=== PATIENT | female | born 1945 | race Caucasian/White ===

== ENCOUNTER 2024-01-21 20:56 | Inpatient (IN) | payer OTHER, SELFPAY ==
[2024-01-21 18:00] VITALS: BMI 26.0
[2024-01-21 18:09] VITALS: BP 133/78
--- NOTE | 2024-01-21 18:45 | ED.SKININJ ---
HPI-Injury
General
Chief Complaint: Skin Problem
Source: patient
Exam Limitations: none
Time Seen by Provider: 01/21/24 18:33
Nursing documentation reviewed up to this point in time: agreed with
Travel History
Have you had any contact with someone who has COVID-19?: No
Do you have any symptoms of coronavirus? Fever > 100 degrees, chills, cough, shortness of breath, sore throat, loss of taste or smell, muscle aches, or headache?: No
History of Present Illness-Injury
Is this injury a work related problem?: No
Is pt an associate of [facility]?: No
Initial Injury comments:
Sustained deep scratch to left choudhary 1 week ago by her dog. States performed her own wound care at home - soap, water, antibiotic ointment. By friday would was looking infected. SHe had augmentin at home so she started taking med bid. Friday
wound looked worse. SHe was seen at . Labs on Friday 'normal'. She was told to continue augmentin and doxycycline 100mg bid was added. She states wound continues to worsen. Denies fever/chills. Reports pain redness swelling to leg Brought
self to ED for eval
Past History
Past History
ED Past Medical History: Cancer (melanom, breast), Psychiatric (ADHD) and Other (OA)
ED Past Surgical History: Orthopedic
Social History
Tobacco: Former smoker
Alcohol: None
Review of Systems
Review of Systems
Allergies reviewed?: Yes
All Other Systems: ROS reviewed and negative except as documented in HPI and ROS
Constitutional: Reports no symptoms
Musculoskeletal: Reports no symptoms
Skin: Reports other (8cm vertical deep abrasion to left choudhary. Yellow discharge. Significant surrounding erythema)
Neurological: Reports no symptoms
Psychiatric: Reports no symptoms
Phy Exam
General Physical Exam
General Presentation: well appearing and no apparent distress
General age: appears stated age
General Skin: warm and dry
General Habitus: normal
General Mental: alert
Musculoskeletal Exam
Musculoskeletal Exam: neuro vasc intact
Skin Exam
Skin Exam: other (8cm deep abrasion to left choudhary. Surrounding erythema pain and swelling consistent with worsening cellulitis)
Psychiatric Exam
Psychiatric Exam: normal mood/affect
Course
Orders/Labs/Results
Orders:
Orders
01/21/24 Dinner
Regular
At Your Request: Limited Participation
Does patient need a safe tray?: No
01/21/24 18:43
Periph Venous Lwr Ext Left US [US Periph Venous LOWER Ext LT] Urgent
Comment:
Reason For Exam: swelling
01/21/24 19:18
Complete Blood Count/With Diff Urgent
Comprehensive Metabolic Panel Urgent
Lactic Acid Urgent
Blood Culture Urgent
KIM Source: Blood/Venous
Specimen Description:
Wound Culture [Wound/Abscess/Other Culture] Urgent
KIM Source: Leg
Specimen Description: Left
Date Specimen was Collected: 01/21/24
Time Specimen was Collected: 19:13
01/21/24 19:32
Vancomycin 1 Gram/200 ml [Vancocin] 1 gram in 200 ml IV NOW
01/21/24 20:41
Admit/Transfer Patient As Directed
Co-Sign Provider:
Level of Care: Inpatient admission
Assign to:: Medical/Surgical
Physician / Group: marva
Diagnosis: dog scratch cellulitis
Reason for Hospitalization: dog scratch cellulitis
Expected length of stay greater than two midnights?: Yes
ELOS- Estimated Length of Stay in days: 2
I certify the patient meets the requirements for IP care: Yes
01/21/24 20:42
Code Status As Directed
Resuscitation Status: Full Code
01/21/24 21:19
Activity As Directed
Activity Level: As Tolerated
Vital Signs As Directed
Frequency: Per unit guidelines
DX Deep Vein Thrombosis Video Routine
01/21/24 22:00
Ampicillin/Sulbactam 3 G [Unasyn] 3 gm 0.9% Sodium Chloride 100 ml [Nss] 100 ml IV Q6H
Escitalopram Oxalate [Lexapro] 15 mg PO HS
Xdnxtjfqm-Ogd-Xhwu [Femara] 2.5 mg PO HS
01/22/24 08:00
Amphet Asp/Amphet/D-Amphet [Adderall] 10 mg PO DAILY
Heparin 5,000 units SC Q12
Abnormal Lab Results
01/21/24
19:18
Absolute Monos (auto) 0.8 H 10^3/uL
(0.1-0.6)
BUN 19 H mg/dl
(7-17)
Glucose 100 H mg/dl
(70-99)
01/21/24 19:18
01/21/24 19:18
Vital Signs
Initial and Last Documented VS:
Initial Vital Signs
Temp Pulse Resp BP Pulse Ox
98.2 F 84 20 133/78 94
01/21/24 18:09 01/21/24 18:09 01/21/24 18:09 01/21/24 18:09 01/21/24 18:09
Last Documented Vital Signs
Temp Pulse Resp BP Pulse Ox
97.7 F 77 18 165/88 96
01/21/24 21:31 01/21/24 21:31 01/21/24 21:31 01/21/24 21:31 01/21/24 21:31
*Radiology
Radiology exam reviewed: radiology read reviewed
*Pulse Oximetry
Patient hypoxic: no
*Critical Care Note
Total Time (30-74mins, 75-104mins- exclusive of procedures): Not Applicable
ED Attending Note
-
Portions of this chart may have been created with voice recognition software.� Occasional wrong word or��sound alike� substitutions may have occurred due to the inherent limitations of voice recognition software.
Discharge Plan
Departure
Patient Disposition: Admit
Date of Disposition: 01/21/24
Time of Disposition: 19:34
Presentation/result/management discussed w/ accepting MD/DO: Hospitalist
Condition: Fair
Covid-19: Not Applicable
Discharge Problem:
Cellulitis of leg
Interventions
Interventions:
*Risk Screen - Suicide Last Done: 01/21/24 18:09
*General Assessment Last Done: 01/21/24 18:09
*Neglect/Abuse Screening Last Done: 01/21/24 18:09
ED- Fall Risk Assessment Last Done: 01/21/24 19:21
*ED COVID-19 Vaccine History Last Done: 01/21/24 19:21
*Nursing Disposition Last Done: 01/21/24 21:17
ED-Skin Assessment Last Done: 01/21/24 19:21
Discharge Date and Time
Discharge Date/Time: 01/21/24 21:17
[2024-01-21 19:31] LABS: % Basophils 1.1 % (0-2); % Eosinophils 2.8 % (0-6); % Immature Granulocytes 0.1 % (0-0.5); % Lymphocytes 23.6 % (20.5-51.1); % Monocytes 9.3 % (1.7-9.3); % Neutrophils 63.1 % (42.2-75.2); Absolute Basophils 0.1 10^3/uL (0-0.2); Absolute Eosinophils 0.3 10^3/uL (0-0.7); Absolute Lymphocytes 2.1 10^3/uL (1.2-3.4); Absolute Monocytes 0.8 10^3/uL (0.1-0.6); Absolute Neutrophils 5.7 10^3/uL (1.4-6.5); Hematocrit 40.4 % (37.0-47.0); Hemoglobin 13.5 g/dL (12.0-16.0); Mean Corp Hgb Conc. 33.4 g/dL (33.0-37.0); Mean Corpuscular Volume 89.8 fL (81.0-99.0); Mean Platelet Volume 9.8 fL (7.4-10.4); Nucleated Red Blood Cells % 0 %; Platelet Count 334 10^3/uL (130-400); Red Cell Dist. Width 14.3 % (11.5-14.5)
[2024-01-21 19:42] LABS: Lactic Acid 0.8 mmol/L (0.7-2.0)
[2024-01-21 19:45] LABS: ALT (SGPT) 17 U/L (0-35); AST (SGOT) 31 U/L (14-36); Albumin 4.2 g/dl (3.5-5.0); Alkaline Phosphatase 90 U/L (38-126); Blood Urea Nitrogen 19 mg/dl (7-17); Calcium 10.1 mg/dl (8.4-10.2); Carbon Dioxide 27 mmol/L (22-30); Chloride 101 mmol/L (98-107); Estimated Creatinine Clearance 46 ml/min; Glucose 100 mg/dl (70-99); Potassium 4.7 mmol/L (3.5-5.1); Sodium 136 mmol/L (135-145); Total Bilirubin 0.7 mg/dl (0.2-1.3); Total Protein 6.6 g/dl (6.3-8.2); eGFR > 60.00
[2024-01-21] MEDS: VANCOCIN 200 IV (20:11)
--- NOTE | 2024-01-21 20:46 | HPS.HSE ---
Family Physician
-
Family Physician: NOT KNOW UNKNOWN - PT DOES
Chief Complaint
-
swelling and redness of leg
History of Present Illness
78-year-old female with past medical history of breast cancer, melanoma, osteoarthritis, ADHD, presenting after she sustained a deep scratch to left choudhary 1 week ago by her dog. She performed her own wound care at home with soap and water and
antibiotic ointment. 2 days ago the wound was looking infected. She had Augmentin at home which she started taking 5 days ago. She went to urgent care that day with normal labs. Doxycycline was added 2 days ago. Wound continued to get worse and
got red and swollen. Denies fevers or chills. Denies discharge but area of scratch was bleeding.
She had some diarrhea yesterday which is resolved now.
Medical History
Past Medical History
Past Medical History: Reports Other ( breast cancer, melanoma, osteoarthritis, ADHD)
Past Surgical History: Reports None
Social History
Tobacco: Non-smoker
Alcohol: None
Drug: None
Family History
Family History: Not pertinent
Allergies / Home Medications
Allergies reflects when Allergies were last updated in [employer].
Home Medications with original date entered in [employer]
Allergy/Medication List:
Allergies
Allergy/AdvReac Type Severity Reaction Status Date / Time
latex Allergy Anaphylaxis Verified 01/21/24 18:09
povidone-iodine Allergy Rash Verified 01/21/24 18:09
[From Betadine]
Home Medications
letrozole 2.5 mg tablet 2.5 mg PO HS 03/22/22
Multi Herbal Supplemt Drink 1 dose PO DAILY 01/21/24
dextroamphetamine-amphetamine 10 mg tablet (Adderall) 10 mg PO DAILY 01/21/24
escitalopram oxalate 10 mg tablet 15 mg PO HS 01/21/24
Review of Systems
-
History Source: Patient
A 12 point ROS was completed and negative except as noted: Yes
Constitutional: Reports No Symptoms
EENT: Reports No Symptoms
Respiratory: Reports No Symptoms
Cardiac: Reports No Symptoms
Abdomen/GI: Reports No Symptoms
: Reports No Symptoms
Musculoskeletal: Reports No Symptoms
Skin: Reports See HPI
Neurological: Reports No Symptoms
Endocrine: Reports No Symptoms
Hematologic/Lymphatic: Reports No Symptoms
Psych: Reports No Symptoms
Physical Exam
Vital Signs
Vital Signs
Temp Pulse Resp BP Pulse Ox
98.2 F 84 20 133/78 94
01/21/24 18:09 01/21/24 18:09 01/21/24 18:09 01/21/24 18:09 01/21/24 18:09
Physical Exam
General: Well Developed, Well Nourished and No Apparent Distress
HEENT: NormoCephalic, Moist mucous membranes and Atraumatic
Respiratory: Clear
Cardiac: S1/S2 and Regular Rhythm; No Murmur or Rub
GI: Soft, Non Tender, Non Distended and Normal Bowel Sounds; No Organomegaly
Rectal: Deferred by Provider
Musculoskeletal: No Clubbing, No Cyanosis and No Edema
Skin: Other (right lower extremity scratch wound with surrdoung erythema and tenderness ); No Rash
Neuro: Nonfocal/grossly intact
Laboratory Results
-
01/21/24 19:18
01/21/24 19:18
Laboratory Results
Lactic Acid 0.8 mmol/L (0.7-2.0) 01/21/24 19:18
Total Bilirubin 0.7 mg/dl (0.2-1.3) 01/21/24 19:18
AST 31 U/L (14-36) 01/21/24 19:18
ALT 17 U/L (0-35) 01/21/24 19:18
Alkaline Phosphatase 90 U/L (38-126) 01/21/24 19:18
Data Reviewed
-
Lab Data: Labs Reviewed by me
Old Records: Reviewed
Impression/Plan
-
IMPRESSION:
PLAN:
# Dog scratch cellulitis
-Wound culture, blood cultures pending
-venous US negative for DVT
-patient received vancomycin in ER
-start Unasyn instead
History of breast cancer
-Continue letrozole
History of melanoma
Osteoarthritis
ADHD
-Continue Adderall
Anxiety/depression
-Continue Lexapro
Full code
DVT prophylaxis�heparin
Regular diet
[2024-01-21 20:49] VITALS: BP 141/64
[2024-01-21 21:31] VITALS: BP 165/88; BMI 25.3
[2024-01-21] MEDS: FEMARA 2.5 MG PO (22:16)
[2024-01-21] MEDS: LEXAPRO 15 MG PO (22:17)
[2024-01-21] MEDS: UNASYN IV (22:19)
[2024-01-21 23:51] VITALS: BP 127/70
--- NOTE | 2024-01-22 | PTCARENOTE ---
Received patient from ER, patient AAOx4. Able to ambulate from stretcher to her bed. Wound to L choudhary, scabbed with surrounding erythema and edema. Wound cleansed and wrapped for protection. Wound consult placed. Oriented to unit, call jones in
reach. Plan of care continues.
[2024-01-22] MEDS: UNASYN IV ×4 (03:58→21:18)
[2024-01-22] MEDS: TYLENOL 650 MG PO ×2 (04:24→14:35)
[2024-01-22 07:55] VITALS: BP 130/71
[2024-01-22] MEDS: ADDERALL 10 MG PO (09:27)
[2024-01-22] MEDS: HEPARIN 5000 UNITS SC ×2 (09:27→20:18)
--- NOTE | 2024-01-22 09:50 | W.PN.HOSP.TC ---
Today's Communication/Plan
-
see A/P
Assessment / Plan
Assessment / Plan
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 She performed her own wound care at home with soap and water and
antibiotic ointment. 2 days QUALITY AUDIT REPRESENTATIVE the wound was looking infected. She had Augmentin at home which she started taking 5 days ago QUALITY AUDIT REPRESENTATIVE. She went to urgent care that day with normal labs. Doxycycline was added 2 days QUALITY AUDIT REPRESENTATIVE. Wound continued to get worse
and got red and swollen. Denies fevers or chills. Denies discharge but area of scratch was bleeding.
She had some diarrhea the day prior admission which has resolved now.
A/P:
# Dog scratch cellulitis of L choudhary area
Follow wound culture, blood culture that were sent from ER
venous US negative for DVT
patient received vancomycin in ER. Cont Unasyn
Wound care CS
# History of breast cancer
Continue letrozole
# History of melanoma
# Osteoarthritis
# ADHD
Continue Adderall
# Anxiety/depression
Continue Lexapro
Full code
DVT prophylaxis�heparin
Regular diet
Anticipated Discharge: Within 24 hours
Subjective/Interval History
-
Date of Service: January 22, 2024
Objective Data
-
Vital Signs:
Vital Signs
Temp Pulse Resp BP Pulse Ox
37.1 C 72 18 130/71 95
01/22/24 07:55 01/22/24 07:55 01/22/24 07:55 01/22/24 07:55 01/22/24 07:55
Review of Systems
-
All other systems: Reviewed and negative
Skin: Reports Other (L choudhary wound)
Physical Exam
-
General: Well Developed, Well Nourished, No Apparent Distress, Comfortable and Conversant; Negative Respiratory Distress
HEENT: Normocephalic, Atraumatic, Nose Appears Normal and Ears Appear Normal; Negative Oxygen
Respiratory: Clear to Auscultation and Non Labored Respirations; Negative Accessory Resp Muscle Use
Cardiac: Regular Rhythm and S1/S2
GI: Soft, Nontender, Nondistended and Normal Bowel Sounds
Skin: Warm, Dry and Lesions (L choudhary area)
Neuro: Awake, Alert, Oriented, AO x 3 and Nonfocal/Grossly Intact
Psych: Calm and Intact Judgement/Insight
Data Reviewed
-
Ultrasound: Report Reviewed by me and Discussed with Patient
Labs: Labs Reviewed by me
--- NOTE | 2024-01-22 10:10 | CM ---
Patient seen bedside, initial assessment completed. Patient resides with her daughter in a split level home, two steps to enter. Patient denies DME at home, reports she has history of SNF and VN in 2017 after her double knee replacement through [facility]. Patient confirms PCP Dr. Barba, pharmacy [facility]. Patient confirms prescription coverage, denies food insecurities at home. CM will continue to follow for discharge planning needs.
Plan; home no needs anticipated.
--- NOTE | 2024-01-22 11:52 | WOUNDNOTE ---
Terrence COOL (with photo flash)
--- NOTE | 2024-01-22 12:03 | WOUNDNOTE ---
[facility] RN note: Patient admitted with dog scratch/cellulitis. Patient lives at home and does her own wound care.
See H&P for complete history.
PMH: breast cancer, melanoma, arthritis, ADHD.
Wound Location and type/assessment: Patient admitted with: full thickness L choudhary wound d/t her dog scratch. She stated her dog is updated on shots. Suspect L choudhary linear wound to subcutaneous layer, wound pink with yellow tissue and ecchymotic
fragile appearing tissue suspect may evolve to necrotic tissue. +Surrounding erythema. Patient stated wound too tender for an Alvaro wrap. +Palpable pedal pulses. Trace-+1 LLE edema.
Appetite: on regular diet.
Pressure redistribution devices in place: [employer] Accum[employer]. Patient is mobile.
Plan: LLE dressing changed. Instructed patient wound care and wound supplies given. Patient instructed to make appointment at [facility] for follow up. LE's elevated on pillow.
Updated and confirmed orders with Dr. Domingo and discussed with DORIS Rodriguez.
Care plan to be updated and will follow as needed.
Recommend follow up at wound care center upon discharge.
[2024-01-22 15:55] VITALS: BP 116/58
[2024-01-22] MEDS: LEXAPRO 15 MG PO (21:17)
[2024-01-22] MEDS: FEMARA 2.5 MG PO (21:17)
[2024-01-22] MEDS: MOTRIN 400 MG PO (21:23)
[2024-01-22 23:46] VITALS: BP 103/63
[2024-01-23] MEDS: UNASYN IV ×2 (04:22→10:39)
[2024-01-23 05:33] LABS: Hematocrit 36.6 % (37.0-47.0); Hemoglobin 12.1 g/dL (12.0-16.0); Mean Corp Hgb Conc. 33.1 g/dL (33.0-37.0); Mean Corpuscular Hgb 29.2 pg (27.0-31.0); Mean Corpuscular Volume 88.2 fL (81.0-99.0); Mean Platelet Volume 9.7 fL (7.4-10.4); Platelet Count 311 10^3/uL (130-400); Red Blood Cell Count 4.15 10^6/uL (4.20-5.40); Red Cell Dist. Width 14.4 % (11.5-14.5); White Blood Cell Count 5.8 10^3/uL (4.8-10.8)
[2024-01-23 06:08] LABS: Blood Urea Nitrogen 18 mg/dl (7-17); Carbon Dioxide 25 mmol/L (22-30); Chloride 107 mmol/L (98-107); Estimated Creatinine Clearance 70 ml/min; Glucose 93 mg/dl (70-99); Potassium 4.2 mmol/L (3.5-5.1); Sodium 139 mmol/L (135-145); eGFR > 60.00
[2024-01-23 07:40] VITALS: BP 126/61
[2024-01-23 08:18] VITALS: BP 126/61
[2024-01-23] MEDS: FLUSH (NSS) 1 FLUSH IV (09:04)
[2024-01-23] MEDS: HEPARIN 5000 UNITS SC (09:08)
[2024-01-23] MEDS: ADDERALL 10 MG PO (09:08)
--- NOTE | 2024-01-23 10:28 | CM ---
Patient seen bedside. IMM reviewed, signed, placed in chart. Patient reports she has transportation home. CM will continue to follow for all discharge planning needs.
Plan; home no needs.
--- NOTE | 2024-01-23 13:03 | W.PN.HOSP.TC ---
Today's Communication/Plan
-
d/c
Assessment / Plan
Assessment / Plan
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 She performed her own wound care at home with soap and water and
antibiotic ointment. 2 days COMMUNITY HEALTH EDUCATION COORDINATOR the wound was looking infected. She had Augmentin at home which she started taking 5 days ago COMMUNITY HEALTH EDUCATION COORDINATOR. She went to urgent care that day with normal labs. Doxycycline was added 2 days COMMUNITY HEALTH EDUCATION COORDINATOR. Wound continued to get worse
and got red and swollen. Denies fevers or chills. Denies discharge but area of scratch was bleeding.
She had some diarrhea the day prior admission which has resolved now.
Dog scratch with E. coli cellulitis of L choudhary area--venous US negative for DVT---patient received vancomycin in ER. Cont Unasyn--Wound care CS apprec
History of breast cancer--Continue letrozole
History of melanoma
Osteoarthritis
ADHD--Continue Adderall
Anxiety/depression--Continue Lexapro
Full code
DVT prophylaxis�heparin
Anticipated Discharge: Today
Subjective/Interval History
-
Date of Service: January 23, 2024
pt ready for d/c
Objective Data
-
Labs:
Laboratory Results
01/23/24
05:05
WBC 5.8
Hgb 12.1
Hct 36.6 L
Plt Count 311
Sodium 139
Potassium 4.2
Chloride 107
Carbon Dioxide 25
BUN 18 H
Creatinine 0.6
Glucose 93
Calcium 9.0
Vital Signs:
max temp for 24 hours
01/22/24
15:55
Temp 98.3 F
Vital Signs
Temp Pulse Resp BP Pulse Ox
97.9 F 71 16 126/61 94
01/23/24 07:40 01/23/24 07:40 01/23/24 07:40 01/23/24 07:40 01/23/24 07:40
I&O
01/22/24 01/23/24 01/24/24
06:59 06:59 06:59
Intake Total 990 / 990
Balance 990 / 990
Review of Systems
-
All other systems: Reviewed and negative
Physical Exam
-
General: Well Developed, Well Nourished and No Apparent Distress
HEENT: Normocephalic and Atraumatic
Respiratory: Clear to Auscultation; Negative Wheezes or Rhonchi
Cardiac: Regular Rhythm and S1/S2; Negative Murmur
GI: Soft, Nontender, Nondistended and Normal Bowel Sounds
Musculoskeletal: No Clubbing, No Cyanosis and No Edema
Skin: Other (healing scratch on left choudhary)
Neuro: Awake
[2024-01-23 14:14] VITALS: BP 144/89
--- NOTE | 2024-01-23 16:41 | W.DCSUMMARY ---
Discharge Summary
Discharge Data
Date of Admission: 01/21/24
Date of Discharge: 01/23/24
-
Pending Results: No
Hospital Course
Primary care physician : Not Listed
Principal Discharge diagnosis : Dog scratch with Escherichia coli cellulitis of the left choudhary
Chronic Discharge diagnosis : History of melanoma, osteoarthritis, anxiety/depression/attention deficit hyperactivity disorder
Hospital Course : Patient is a 78-year-old female who presented after she sustained a deep scratch to her left choudhary 1 week prior by her dog. She did her own wound care at home with soap and water and antibiotic ointment. The wound then started
looking infected and hurt. She went to urgent care who started her on Augmentin along with doxycycline added a few days later. Wound continued to get worse, red, and swollen and she denied fevers or chills. She was sent for admission.
Problem #1: Dog scratch with Escherichia coli cellulitis of the left choudhary. It is unclear whether this was a true failure of antibiotics. Patient was admitted and started on IV Unasyn and did receive 1 dose of vancomycin in the ED. Wound culture
was sent which showed Escherichia coli pansensitive. Patient was restarted on her oral antibiotics prior to admission and instructed to complete both courses of Augmentin and doxycycline. She was also seen in consultation by wound care. She has
been instructed to follow-up with the wound care clinic as an outpatient.
Problem #2: All other medical issues. These include History of melanoma, osteoarthritis, anxiety/depression/attention deficit hyperactivity disorder. These medical issues were stable during her hospitalization. Medications were continued as able.
Patient is stable for discharge home at this time. If there are any questions regarding this dictation or her hospital stay, please not hesitate to call. Our office number is [phone].
Discharge Plan
-
Patient Disposition: Home (Routine Discharge)
Discharge Diagnosis/Procedures: Dog scratch with Escherichia coli cellulitis of the left choudhary, history of breast cancer, history of melanoma, osteoarthritis, attention deficit hyperactivity disorder, anxiety/depression
Condition: Good
Diet: As tolerated and Regular
Activity: As tolerated
Driving Restrictions: As prior to admission
Bathing Restrictions: None
Activity Restrictions/Additional Instructions:
Wound Care Instructions
LLE wound-clean with saline or soap and water, honey gel or Vaseline, cover with Vaseline gauze, ABD pad, Vitaliy, stockinet. Change daily and as needed for drainage.
Frequent LLE elevation.
Follow up at wound care center call for an appointment.
Referrals:
UNKNOWN - PT DOES,NOT KNOW [Family Provider] - in less than 1 week
Additional Discharge Medication Instructions:
Resume your outpatient antibiotic of amoxicillin/clavulanic acid (Augmentin) and your doxycycline as previously directed prior to your hospitalization
Prescriptions:
New
acetaminophen 325 mg Tablet
650 mg PO Q6HPRN PRN (Reason: mild pain/ fever>100.5F) Qty: 0 0RF
Continued
letrozole 2.5 mg Tablet
2.5 mg PO HS
dextroamphetamine-amphetamine [Adderall] 10 mg Tablet
10 mg PO DAILY
Patient Comments:
01/21/2024: last filled 12/03/23, 135 tabs for 90 day from [facility]
escitalopram oxalate 10 mg Tablet
15 mg PO HS
Multi Herbal Supplemt Drink
1 dose PO DAILY
Patient Comments:
01/21/2024: Pt states some contents of this drink are Grape Seed Extract, Calcium, Vitamin B-12, MVI
Discharge Orders:
Discharge Patient (As Directed); Ordered 01/23/24
Ordered By: Taylor Song
Discharge Date and Time
Discharge Date/Time: 01/23/24 15:39
Print Language: FILIPINO
== END 2024-01-23 15:39 | disposition home or self-care (01) | DRG 603 ==
LOC: 4 EAST ACU 20:56
PROVIDERS: Internal Medicine; Nurse Practitioner; ADMITTING PHYSICIAN Hospitalist; ATTENDING PHYSICIAN Internal Medicine; EMERGENCY PHYSICIAN Emergency Medicine
DX: L03.116 Cellulitis of left lower limb (principal); S80.812A Abrasion, left lower leg, initial encounter; X58.XXXA Exposure to other specified factors, initial encounter; Y93.9 Activity, unspecified; Y92.009 Unspecified place in unspecified non-institutional (private) residence as the place of occurrence of the external cause; F90.9 Attention-deficit hyperactivity disorder, unspecified type; F32.A Depression, unspecified; B96.20 Unspecified Escherichia coli [E. coli] as the cause of diseases classified elsewhere; F41.9 Anxiety disorder, unspecified; M19.90 Unspecified osteoarthritis, unspecified site; Z87.891 Personal history of nicotine dependence; Z91.041 Radiographic dye allergy status; Z91.040 Latex allergy status; Z85.3 Personal history of malignant neoplasm of breast; Z85.820 Personal history of malignant melanoma of skin
CPT/HCPCS: 73590; 80048; 80053; 83605; 85025; 85027; 87040; 87070; 87077; 87186; 87205; 93971; 96365; 99284

== ENCOUNTER → 2024-01-30 08:20 | Outpatient (REF) | payer OTHER, SELFPAY | LOC: WOUND 08:20 | PROVIDERS: ATTENDING PHYSICIAN Surgery; FAMILY PHYSICIAN Family Medicine | DX: L97.222 Non-pressure chronic ulcer of left calf with fat layer exposed (principal); Z85.3 Personal history of malignant neoplasm of breast | CPT/HCPCS: 11042; 99203 ==

== ENCOUNTER → 2024-02-06 14:04 | Outpatient (REF) | payer OTHER, SELFPAY | LOC: WOUND 14:04 | PROVIDERS: ATTENDING PHYSICIAN Surgery; FAMILY PHYSICIAN Family Medicine | DX: L97.222 Non-pressure chronic ulcer of left calf with fat layer exposed (principal); F98.8 Other specified behavioral and emotional disorders with onset usually occurring in childhood and adolescence; Z85.3 Personal history of malignant neoplasm of breast | CPT/HCPCS: 97597 ==

== ENCOUNTER → 2024-02-12 10:28 | Outpatient (REF) | payer OTHER, SELFPAY | LOC: WOUND 10:28 | PROVIDERS: ATTENDING PHYSICIAN Surgery; FAMILY PHYSICIAN Family Medicine | DX: L97.222 Non-pressure chronic ulcer of left calf with fat layer exposed (principal); F98.8 Other specified behavioral and emotional disorders with onset usually occurring in childhood and adolescence; Z85.3 Personal history of malignant neoplasm of breast | CPT/HCPCS: 11042 ==

== ENCOUNTER → 2024-02-19 13:52 | Outpatient (REF) | payer OTHER, SELFPAY | LOC: WOUND 13:52 | PROVIDERS: ATTENDING PHYSICIAN Surgery; FAMILY PHYSICIAN Family Medicine | DX: L97.222 Non-pressure chronic ulcer of left calf with fat layer exposed (principal); F98.8 Other specified behavioral and emotional disorders with onset usually occurring in childhood and adolescence; Z85.3 Personal history of malignant neoplasm of breast | CPT/HCPCS: 99213 ==

== ENCOUNTER 2024-12-22 22:28 | Emergency (ER) | payer OTHER, SELFPAY ==
[2024-12-22 22:32] VITALS: BP 140/76
--- NOTE | 2024-12-23 03:44 | ED.GENMED ---
History of Present Illness
General
Chief Complaint: Fall
Source: patient and family
Exam Limitations: none
Time Seen by Provider: 12/23/24 01:22
Nursing documentation reviewed up to this point in time: agreed with
History of Present Illness
History of Present Illness:
79-year-old female presenting to the emergency department today after trip and fall down 1 step of the back of her head left elbow and left hip has been able to ambulate move her arm well not on blood thinners. At this point has mild achiness to
the left elbow left hip the back of the head. Up-to-date with her tetanus.
Past History
Past History
ED Past Medical History: Cancer (melanom, breast), Psychiatric (ADHD) and Other (OA)
ED Past Surgical History: Orthopedic
Social History
Tobacco: Former smoker
Alcohol: None
Review of Systems
Review of Systems
Allergies reviewed?: Yes
All Other Systems: ROS reviewed and negative except as documented in HPI and ROS
Phy Exam
Physical Exam
Physical Exam:
GENERAL: Alert , in no apparent distress
EYE: pupils equal and reactive
NECK: Supple, no significant adenopathy.
ENT: 2.5 cm laceration to the left posterior scalp subcutaneous in depth o/p clr, mmm.
CARDIAC: Regular rate and rhythm .
LUNGS: Clear breath sounds bilaterally, no acute respiratory distress, no wheezes/rales/rhonchi
ABDOMEN: Soft, without focal tenderness, no r/g, no cvat
NEUROLOGICAL: Alert and oriented, no focal neuro deficits
SKIN: Skin tear to the left elbow overlying olecranon. 3 cm in length superficial warm and dry, skin intact.
MUSCULOSKELETAL: No edema, well perfused.
PSYCH: Normal and appropriate interaction.
Course
Orders/Labs/Results
Orders:
Orders
12/23/24
CT Head W/o Iv Contrast Urgent
Reason For Exam: fall
Vital Signs
Initial and Last Documented VS:
Initial Vital Signs
Temp Pulse Resp BP Pulse Ox
97.8 F 82 16 140/76 98
12/22/24 22:32 12/22/24 22:32 12/22/24 22:32 12/22/24 22:32 12/22/24 22:32
Last Documented Vital Signs
Temp Pulse Resp BP Pulse Ox
97.8 F 82 18 140/76 98
12/22/24 22:32 12/22/24 22:32 12/23/24 02:51 12/22/24 22:32 12/22/24 22:32
Procedures
Laceration Closure
Left Posterior Scalp:
Status of Wound: clean
Size of Wound in cm: 2.5
Description of Wound Edges: sharp
Preparation: cleaned with saline
Anesthesia: 1% Lidocaine with epi
Revision/Debridement: routine- no revision
Wound exploration: explored to base- no FB
Type of Closure: single layer closure and Dermabond-skin glue
Skin Closure Material: other (Hair apposition)
MDM/Problems Addressed
MDM/Problems Addressed:
79-year-old female presenting to the emergency department today with concerns after trip and fall over 1 step with discomfort to the left hip and left arm and the back of her head. Did not lose consciousness up-to-date with tetanus shot. Head CT
without emergent findings no significant neck pain to midline normal neurologic evaluation. Superficial skin tear to the left elbow was closed with Steri-Strips hair apposition technique used for the left posterior scalp. Otherwise stable for
discharge return precautions given.
*Critical Care Note
Total Time (30-74mins, 75-104mins- exclusive of procedures): Not Applicable
ED Attending Note
-
Portions of this chart may have been created with voice recognition software.� Occasional wrong word or��sound alike� substitutions may have occurred due to the inherent limitations of voice recognition software.
Discharge Plan
Departure
Patient Disposition: Home (Routine Discharge)
Date of Disposition: 12/23/24
Time of Disposition: 03:49
Patient with high blood pressure during this ER visit?: No
Condition: Good
Covid-19: Not Applicable
Discharge Problem:
Laceration of scalp, Skin tear of elbow without complication, Contusion of hip, left
Instructions: Laceration Repair With Glue (DC), Preventing falls in adults
Prescriptions:
No Action
letrozole 2.5 mg Tablet
2.5 mg PO HS
dextroamphetamine-amphetamine [Adderall] 10 mg Tablet
10 mg PO DAILY
Patient Comments:
01/21/2024: last filled 12/03/23, 135 tabs for 90 day from [facility]
escitalopram oxalate 10 mg Tablet
15 mg PO HS
Multi Herbal Supplemt Drink
1 dose PO DAILY
Patient Comments:
01/21/2024: Pt states some contents of this drink are Grape Seed Extract, Calcium, Vitamin B-12, MVI
acetaminophen 325 mg Tablet
650 mg PO Q6HPRN PRN (Reason: mild pain/ fever>100.5F) Qty: 0 0RF
Referrals:
UNKNOWN - PT DOES,NOT KNOW [Family Provider] -
Activity Restrictions/Additional Instructions:
You came to the emergency department today after a fall. Here you had a normal head CT. You had the hair apposition technique used for your scalp laceration. Please keep the area clean and allow the glue to stay in place for at least 1 week.
Please leave the Steri-Strips in place as long as possible to the left elbow. Return for any worsening, new or concerning symptoms.
Interventions
Interventions:
*Risk Screen - Suicide Last Done: 12/22/24 22:34
*Neglect/Abuse Screening Last Done: 12/22/24 22:34
ED-Musculoskeletal Assessment Last Done: 12/23/24 01:10
ED- Neurological Assessment Last Done: 12/23/24 01:10
ED-Skin Assessment Last Done: 12/23/24 01:10
Discharge Date and Time
Print Language: DOMINICAN
== END 2024-12-23 05:32 | disposition home or self-care (01) ==
LOC: EMR 22:28
PROVIDERS: EMERGENCY PHYSICIAN Emergency Medicine
DX: S01.01XA Laceration without foreign body of scalp, initial encounter (principal); S51.012A Laceration without foreign body of left elbow, initial encounter; S70.02XA Contusion of left hip, initial encounter; W10.9XXA Fall (on) (from) unspecified stairs and steps, initial encounter; F90.9 Attention-deficit hyperactivity disorder, unspecified type; M19.90 Unspecified osteoarthritis, unspecified site; Z87.891 Personal history of nicotine dependence
CPT/HCPCS: 99282; 12001; 70450

== ENCOUNTER → 2025-04-19 10:45 | Outpatient (REF) | payer OTHER, SELFPAY | LOC: DHVS 10:45 | PROVIDERS: ATTENDING PHYSICIAN Family Medicine | DX: R60.0 Localized edema (principal) | CPT/HCPCS: 93970 ==

== ENCOUNTER 2025-08-08 07:58 | Outpatient (REF) | payer OTHER, SELFPAY | END 2025-08-08 23:59 | disposition home or self-care (01) | LOC: WOUND 07:58 | PROVIDERS: ATTENDING PHYSICIAN Registered Nurse; FAMILY PHYSICIAN Family Medicine | DX: L97.912 Non-pressure chronic ulcer of unspecified part of right lower leg with fat layer exposed (principal); L03.115 Cellulitis of right lower limb | CPT/HCPCS: 11042; 99203 ==

== ENCOUNTER → 2025-08-11 09:32 | Outpatient (REF) | payer OTHER, SELFPAY | LOC: RAD 09:32 | PROVIDERS: ATTENDING PHYSICIAN Family Medicine | DX: L03.115 Cellulitis of right lower limb (principal) | CPT/HCPCS: 93925 ==

== ENCOUNTER 2025-08-22 14:33 | Outpatient (REF) | payer OTHER, SELFPAY | END 2025-08-22 23:59 | disposition home or self-care (01) | LOC: WOUND 14:33 | PROVIDERS: ATTENDING PHYSICIAN Registered Nurse; FAMILY PHYSICIAN Family Medicine | DX: L97.912 Non-pressure chronic ulcer of unspecified part of right lower leg with fat layer exposed (principal); L03.115 Cellulitis of right lower limb | CPT/HCPCS: 11042; 99213 ==

== ENCOUNTER 2025-09-06 14:17 | Outpatient (REF) | payer OTHER, SELFPAY | END 2025-09-06 23:59 | disposition home or self-care (01) | LOC: WOUND 14:17 | PROVIDERS: ATTENDING PHYSICIAN Registered Nurse; FAMILY PHYSICIAN Family Medicine | DX: L97.912 Non-pressure chronic ulcer of unspecified part of right lower leg with fat layer exposed (principal); L03.115 Cellulitis of right lower limb | CPT/HCPCS: 97597; 97598 ==

== ENCOUNTER → 2025-09-06 15:10 | Outpatient (REF) | payer OTHER, SELFPAY | LOC: RAD 15:10 | PROVIDERS: ATTENDING PHYSICIAN Registered Nurse; FAMILY PHYSICIAN Family Medicine | DX: L97.912 Non-pressure chronic ulcer of unspecified part of right lower leg with fat layer exposed (principal) | CPT/HCPCS: 93971 ==